=== PATIENT | female | born 1995 | race Two or more races ===

== ENCOUNTER → 2016-08-22 | Outpatient (CLI) | payer MEDICAID ==
--- NOTE | 2016-08-22 17:02 | RADIOLOGY REPORT (SQ) ---
EXAM DESCRIPTION: U/S OB 14+ TA/1 GEST W/DOPPLER COMPLETED DATE/TIME: 08/22/2016 4:49 pm REASON FOR STUDY: Z34.82 ENCOUNTER FOR SUPRVSN OF NORMAL , SECOND TRI COMPARISON: None. TECHNIQUE: Static and Dynamic grayscale imaging performed of gravid uterus using transabdominal appr oach. Additional selected color Doppler and spectral images recorded. All stored on PACS. LIMITATIONS: None. FINDINGS: EGA: 25 weeks and 1 day ANNMARIE: 12/04/2016 EFW: 781 g +/-116 g PERCENTILE: 46th LVP: 3.9 cm PLACENTA: Anterior PRESENTATION: Vertex ANATOMY: HEART RATE: 133 beats per minute. FOUR CHAMBER HEART: Visualized. THREE VESSEL CORD: Yes. CORD INSERTION: Visualized. KIDNEYS AND BLADDER: Visualized. Appear normal. STOMACH: Visualized. Appears normal. SPINE: Limited evaluation due to position. BRAIN AND LATERAL VENTRICLES: Limited evaluation due to position. OTHER: No other significant finding. MATERNAL ADNEXA: Maternal ovaries not visualized. CERVICAL LENGTH: 3.0 cm Closed. OTHER: No other significant finding. IMPRESSION: LIVING INTRAUTERINE . ESTIMATED GESTATIONAL AGE 25 weeks 1 day NO VISUALIZED ANOMALIES. Trimester of : Second trimester - 13 weeks 1 day to 27 weeks 6 days. TECHNICAL DOCUMENTATION: JOB ID: [id number] [employer]- All Rights Reserved
== END ==
LOC: RAD 14:41
PROVIDERS: ATTEND Nurse Practitioner Women's Health
DX: Z34.02 Encounter for supervision of normal first pregnancy, second trimester (principal)
CPT/HCPCS: 76805; 93976

== ENCOUNTER 2016-12-01 09:28 | Inpatient (IN) | payer MEDICAID ==
[2016-12-01] MEDS ORDERED: RINGERS SOLUTION,LACTATED 1,000 ML IV PRN (10:10)
[2016-12-01] MEDS ORDERED: LIDOCAINE 1% INJ-PF (10 MG/ML) 30 ML SDV ONE (10:15)
[2016-12-01] MEDS ORDERED: MISOPROSTOL 0.2 MG TABLET ONE (10:15)
[2016-12-01] MEDS ORDERED: OXYTOCIN/NORMAL SALINE 20 UNIT/1,000 ML RTUINJ ONE (10:15)
[2016-12-01 10:17] LABS: ABSOLUTE EOSINOPHILS # (AUTO) 0.1 10^3/uL (0.0-0.6); ABSOLUTE LYMPHOCYTES (AUTO) 3.1 10^3/uL (0.5-4.7); ABSOLUTE MONOCYTES (AUTO) 0.8 10^3/uL (0.1-1.4); ABSOLUTE NEUT (AUTO) 4.4 10^3/uL (1.7-8.2); BASOPHILS % (AUTO) 0.5 % (0-2); EOSINOPHILS % (AUTO) 1.3 % (0-6); HEMOGLOBIN 11.7 g/dL (12.0-15.5); HGB HCT DIFFERENCE 1.1; LYMPHOCYTES % (AUTO) 36.3 % (13-45); MEAN CORPUSCULAR HEMOGLOBIN 29.3 pg (27.0-33.4); MEAN CORPUSCULAR HGB CONC 34.5 g/dL (32.0-36.0); MEAN CORPUSCULAR VOLUME 85 fl (80-97); MONOCYTES % (AUTO) 9.3 % (3-13); RED BLOOD COUNT 4.01 10^6/uL (3.72-5.28); RED CELL DISTRIBUTION WIDTH 14.5 % (11.5-14.0); SEGMENTED NEUTROPHILS % (AUTO) 52.6 % (42-78); WHITE BLOOD COUNT 8.4 10^3/uL (4.0-10.5)
[2016-12-01] MEDS ORDERED: NALBUPHINE HCL INJ 10 MG/1 ML AMPULE ONE (10:21)
[2016-12-01] MEDS ORDERED: PROMETHAZINE HCL INJ 25 MG/1 ML VIAL ONE (10:21)
[2016-12-01 10:26] LABS: APPEARANCE,URINE CLEAR; BILIRUBIN,URINE NEGATIVE (NEGATIVE); GLUCOSE, URINE NEGATIVE (NEGATIVE); KETONES,URINE NEGATIVE (NEGATIVE); LEUKOCYTE ESTERASE,URINE NEGATIVE (NEGATIVE); NITRITE,URINE NEGATIVE (NEGATIVE); PROTEIN,URINE NEGATIVE (NEGATIVE); URINE SPECIFIC GRAVITY 1.008; UROBILINOGEN,URINE NEGATIVE mg/dL (<2.0)
--- NOTE | 2016-12-01 10:39 | Non Stress Test Report ---
Non Stress Test Datetime Report Generated by CPN: 12/01/2016 10:39 DEMOGRAPHIC EGA NST: 39.4 INDICATION Indication for Study: Ordered by Provider MONITORING Monitor Explained: Monitor Explained; Test Explained; Patient Verbalized Understanding Time on Monitor: 12/01/2016 09:47 Time off Monitor: 12/01/2016 10:37 NST Duration: 50 NST INTERVENTIONS NST Interventions: None Physician Notified NST: Dr Reyna BABY A: [id number] BABY A Movement : Present Movement : Present Contraction Frequency : 2-5 FHR Baseline : 135 Accelerations : 15X15 Accelerations : 15X15 Decelerations : None Decelerations : None Variability : Moderate 6-25bpm Variability : Moderate 6-25bpm NST Review: Meets Criteria for Reactive NST NST Review: Meets Criteria for Reactive NST NST Review and Verified By : Jorge Gill RN NST Results: Reactive NST Results: Reactive NST REPORT Report Trigger: Send Report
[2016-12-01 10:52] LABS: URINE BARBITURATES SCREEN NEGATIVE; URINE METHADONE SCREEN NEGATIVE; URINE OPIATES LOW NEGATIVE; URINE PHENCYCLIDINE SCREEN NEGATIVE
[2016-12-01] MEDS ORDERED: ONDANSETRON 4 MG TAB.RAPDIS ONE (11:05)
[2016-12-01] MEDS ORDERED: MISOPROSTOL 0.2 MG TABLET PR PRN (11:31)
[2016-12-01] MEDS ORDERED: LIDOCAINE 1% INJ-PF (10 MG/ML) 30 ML SDV INJ PRN (11:31)
[2016-12-01] MEDS ORDERED: PHENYLEPHRINE HCL INJ/PF 10 MG/1 ML SDV ONE (16:45)
[2016-12-01] MEDS ORDERED: BUPIVACAINE HCL 0.25 % INJ/PF (2.5 MG/1 ML) 30 ML VIAL ONE (16:45)
[2016-12-01] MEDS ORDERED: FENTANYL/BUPIVACAINE/NS/PF 200 MCG/100 ML RTUINJ EPI ONE (16:45)
[2016-12-01] MEDS ORDERED: FENTANYL CITRATE INJ/PF 100 MCG/2 ML AMPUL ONE (16:45)
[2016-12-01] MEDS ORDERED: EPHEDRINE SULFATE INJ 50 MG/1 ML AMPULE ONE (16:45)
[2016-12-01] MEDS ORDERED: EPHEDRINE SULFATE INJ 50 MG/1 ML AMPULE IV ONE (17:24)
[2016-12-01] MEDS ORDERED: BENZOIN/ALOE VERA/STORAX/TOLU TINCTURE 60 ML TP PRN (17:24)
[2016-12-01] MEDS ORDERED: FENTANYL CITRATE INJ/PF 100 MCG/2 ML AMPUL EPI ONE (17:24)
[2016-12-01] MEDS ORDERED: FENTANYL/BUPIVACAINE/NS/PF 200 MCG/100 ML RTUINJ EPI PRN (17:24)
[2016-12-01] MEDS ORDERED: BUPIVACAINE HCL 0.25 % INJ/PF (2.5 MG/1 ML) 30 ML VIAL INFIL ONE (17:24)
[2016-12-01] MEDS: OXYTOCIN/NORMAL SALINE 20 UNIT/1,000 ML RTUINJ IV PRN ×2 (17:33→18:01)
[2016-12-01] MEDS ORDERED: OXYTOCIN/NORMAL SALINE 20 UNIT/1,000 ML RTUINJ IV PRN ×2 (17:47→19:28)
[2016-12-01] MEDS ORDERED: METHYLERGONOVINE MALEATE INJ/PF 0.2 MG/1 ML AMPULE ONE (18:59)
[2016-12-01] MEDS ORDERED: ACETAMINOPHEN WITH CODEINE #3 TABLET PO PRN ×2 (19:28)
[2016-12-01] MEDS ORDERED: DIBUCAINE 1% OINTMENT 28 GM TP PRN (19:28)
[2016-12-01] MEDS ORDERED: MEASLES,MUMPS&RUBELLA VACC/PF 0.5 ML VIAL SUBCUT PRN (19:28)
[2016-12-01] MEDS ORDERED: DIPH/PERTUSS(ACELL)/TETANUS VAC/PF 0.5 ML SYR (>=10YO) IM PRN (19:28)
[2016-12-01] MEDS ORDERED: ZOLPIDEM TARTRATE 5 MG TABLET PO PRN (19:28)
[2016-12-01] MEDS ORDERED: BENZOCAINE/MENTHOL AEROSOL SPRAY 56 ML TOP PRN (19:28)
[2016-12-01] MEDS ORDERED: AMMONIA INHALANTS 10 AMPUL/BOX IH ONE (20:38)
[2016-12-01] MEDS ORDERED: IBUPROFEN 800 MG TABLET ONE (20:55)
[2016-12-01] MEDS: IBUPROFEN 800 MG TABLET PO SCH (20:58)
--- NOTE | 2016-12-01 21:50 | Admission Physical ---
Datetime Report Generated by CPN: 12/01/2016 21:50 CURRENT ADMISSION Chief Complaint: Uterine Contractions; Suspected Ruptured Membranes Indication for Induction: Not Applicable Indication for Induction: Term, Intrauterine ; Active Labor; Ruptured Membranes Admit Plan: Admit to Unit; Initiate Labor Protocol ALLERGIES Medication Allergies: Yes Medication Allergies: No Known Allergies (12/01/2016) Latex: No Latex Allergies OBSTETRICAL HISTORY EDC: 12/04/2016 00:00 : 3 Para: 0 Term: 0 : 0 SAB: 2 IAB: 0 Ectopic: 0 Livin Cesareans: 0 VBACs: 0 Multiple Births: 0 Gestational Diabetes: No Rh Sensitization: No Incompetent Cervix: No RADHA: No Infertility: No ART Treatment: No Uterine Anomaly: No IUGR: No Hx Previous C/S: No Macrosomia: No Hx Loss/Stillborn: No PIH: No Hx : No Placenta Previa/Abruption: No Depression/PP Depression: No PTL/PROM: No Post Hemorrhage: No Current Procedures: Ultrasound Obstetrical History Comments: G1 SAB @ 6wks G2 SAB @ 8wks G3 current SEE RECORDS Alcohol: No Marijuana : No Cocaine: No Other Illicit Drugs: No Cigarettes: Never Smoker. [id number] MEDICAL HISTORY Diabetes: No Blood Transfusion: No Pulmonary Disease (Asthma, TB): No Breast Disease: No Hypertension: No Campaign Analyst Surgery: No Heart Disease: No Hosp/Surgery: No Autoimmune Disorder: No Anesthetic Complications: No Kidney Disease: No Abnormal Pap Smear: No Neuro/Epilepsy: No Psychiatric Disorders: No Other Medical Diseases: No Hepatitis/Liver Disease: No Significant Family History: No Varicosities/Phlebitis: No Trauma/Violence : No Thyroid Dysfunction: No INFECTIOUS HISTORY Gonorrhea: No Genital Herpes: No Chlamydia: No Tuberculosis: No Syphilis: No Hepatitis: No HIV/AIDS Exposure: No Rash or Viral Illness: No HPV: No PHYSICAL EXAM General: Normal HEENT: Normal Neurologic: Normal Thyroid: Deferred Heart: Normal Lungs: Normal Breast: Deferred Back: Normal Abdomen: Normal Genitourinary Exam: Normal Extremities: Normal DTRs: Normal Pelvic Type: Adequate Vital Signs: Reviewed; Within Normal Limits VAGINAL EXAM Dilatation: 7 Effacement: 90 Station: -1 MEMBRANES Membranes: Ruptured Amniotic Fluid Color: Meconium, Light FETUS A EGA: 39.4 Monitoring: External US FHR- Baseline: 140 Variability: Moderate 6-25bpm Accelerations: 15X15 Decelerations: None FHR Category: Category I Presentation: Vertex PLANS FOR LABOR AND DELIVERY Feeding Preference: Breast Benefit of Breast Feed Discussed: Yes INFORMED CONSENT Signature: with User ID: [email or web address]
[2016-12-02] MEDS: IBUPROFEN 800 MG TABLET PO SCH ×3 (05:58→21:30)
[2016-12-02 07:51] LABS: HEMATOCRIT 25.9 % (36.0-47.0); HGB HCT DIFFERENCE 0.5; MEAN CORPUSCULAR HGB CONC 34.1 g/dL (32.0-36.0); MEAN CORPUSCULAR VOLUME 85 fl (80-97); RED BLOOD COUNT 3.03 10^6/uL (3.72-5.28); RED CELL DISTRIBUTION WIDTH 14.3 % (11.5-14.0)
[2016-12-02 07:54] LABS: HEMOGLOBIN 8.8 g/dL (12.0-15.5)
[2016-12-02] MEDS: DOCUSATE SODIUM 100 MG CAPSULE PO SCH ×2 (09:32→17:59)
[2016-12-02] MEDS: FERROUS SULFATE 325 MG TABLET PO SCH ×2 (09:32→17:59)
[2016-12-02] MEDS: PRENATAL VITAMIN W-O CA NO5/FE FUMARATE/FA CAPSULE PO SCH (09:33)
[2016-12-02] MEDS: SENNOSIDES/DOCUSATE 8.6-50 MG 1 EACH TABLET PO SCH (09:33)
--- NOTE | 2016-12-02 09:35 | PDOC PROGRESS REPORT ---
Subjective-OB Subjective: Post Delivery Day: 21 year old. Denies any needs at this time Breast and bottle feeding. Doing well, voiding, ambulating. No heavy bleeding. Physical Exam (OB) Vital Signs: Temp Pulse Resp BP Pulse Ox 98.3 F 85 16 110/53 L 100 12/02/16 08:25 12/02/16 08:25 12/02/16 08:25 12/02/16 08:25 12/02/16 08:25 Intake & Output 12/01/16 12/02/16 12/03/16 06:59 06:59 06:59 Weight 74.4 kg - Lochia Lochia Amount: Small 10-25 ml Lochia Color: Rubra/Red - Abdomen Description: Soft, Round Hernia Present: No Fundal Description: Firm, Midline Fundal Height: u/u - u/2 Objective-Diagnostic Laboratory: 12/02/16 07:37 12/01/16 12/01/16 12/01/16 09:42 10:05 10:05 WBC 8.4 RBC 4.01 Hgb 11.7 L Hct 34.0 L MCV 85 MCH 29.3 MCHC 34.5 RDW 14.5 H Plt Count 237 Seg Neutrophils % 52.6 Lymphocytes % 36.3 Monocytes % 9.3 Eosinophils % 1.3 Basophils % 0.5 Absolute Neutrophils 4.4 Absolute Lymphocytes 3.1 Absolute Monocytes 0.8 Absolute Eosinophils 0.1 Absolute Basophils 0.0 Urine Color YELLOW Urine Appearance CLEAR Urine pH 6.0 Ur Specific [place] 1.008 Urine Protein NEGATIVE Urine Glucose (UA) NEGATIVE Urine Ketones NEGATIVE Urine Blood SMALL H Urine Nitrite NEGATIVE Ur Leukocyte Esterase NEGATIVE Blood Type O POSITIVE Antibody Screen NEGATIVE 12/02/16 07:37 WBC 19.0 H D RBC 3.03 L Hgb 8.8 L D Hct 25.9 L MCV 85 MCH 29.0 MCHC 34.1 RDW 14.3 H Plt Count 243 Seg Neutrophils % Lymphocytes % Monocytes % Eosinophils % Basophils % Absolute Neutrophils Absolute Lymphocytes Absolute Monocytes Absolute Eosinophils Absolute Basophils Urine Color Urine Appearance Urine pH Ur Specific [place] Urine Protein Urine Glucose (UA) Urine Ketones Urine Blood Urine Nitrite Ur Leukocyte Esterase Blood Type Antibody Screen Assessment and Plan(PN) - Assessment and Plan (1) hemorrhage Qualifiers: hemorrhage type: unspecified Qualified Code(s): O72.1 - Other immediate hemorrhage Is this a current diagnosis for this admission?: Yes (2) Vaginal delivery Is this a current diagnosis for this admission?: Yes - Time Spent with Patient Time with patient: Less than 15 minutes Medications reviewed and adjusted accordingly: Yes - Disposition Anticipated Discharge: Home Within: within 48 hours
[2016-12-02 10:28] LABS: HEMATOCRIT 22.7 % (36.0-47.0); HGB HCT DIFFERENCE 0.4; MEAN CORPUSCULAR HEMOGLOBIN 28.9 pg (27.0-33.4); MEAN CORPUSCULAR HGB CONC 33.8 g/dL (32.0-36.0); MEAN CORPUSCULAR VOLUME 85 fl (80-97); RED BLOOD COUNT 2.66 10^6/uL (3.72-5.28); RED CELL DISTRIBUTION WIDTH 14.3 % (11.5-14.0); WHITE BLOOD COUNT 15.1 10^3/uL (4.0-10.5)
[2016-12-02 10:49] LABS: HEMOGLOBIN 7.7 g/dL (12.0-15.5)
[2016-12-03] MEDS: IBUPROFEN 800 MG TABLET PO SCH ×2 (06:58→13:38)
[2016-12-03 08:52] VITALS: BP 115/66
--- NOTE | 2016-12-03 09:13 | PDOC DISCHARGE SUMMARY ---
Final Diagnosis Discharge Date: 12/03/16 - Final Diagnosis (1) hemorrhage Is this a current diagnosis for this admission?: Yes (2) Vaginal delivery Is this a current diagnosis for this admission?: Yes Discharge Data - Discharge Medication Home Medications: Docusate Sodium [Colace 100 mg Capsule] 100 mg PO BID #60 capsule 12/03/16 Ferrous Sulfate [Feosol 325 mg Tablet] 325 mg PO BID #60 tablet 12/03/16 Ibuprofen [Motrin 800 mg Tablet] 800 mg PO Q8 #60 tablet 12/03/16 Gestational Age: 39.4 Reason(s) for Admission: Onset of Labor Procedures: NST Intrapartum Procedure(s): Spontaneous Vaginal Delivery Complication(s): Laceration-Perineal, Laceration-Periurethral Laceration-Degree: 2nd - [place] Data Baby 1 Male at 1 minute: 8 at 5 minutes: 9 Home with Mother: Yes Complications: No - Diagnosis Test Laboratory: Temp Pulse Resp BP Pulse Ox 98.2 F 83 17 115/66 100 12/03/16 08:16 12/03/16 08:16 12/03/16 08:16 12/03/16 08:16 12/03/16 08:16 12/01/16 12/01/16 12/02/16 09:42 10:05 07:37 RBC 4.01 3.03 L Hgb 11.7 L 8.8 L D Hct 34.0 L 25.9 L Urine Opiates Screen NEGATIVE 12/02/16 09:50 RBC 2.66 L Hgb 7.7 L Hct 22.7 L Urine Opiates Screen - Discharge information/Instructions Discharge Activity: Activity As Tolerated, Pelvic Rest, No tub bath Discharge Diet: Regular Disposition: HOME, SELF-CARE Follow up with: [facility] in: 4, Weeks
[2016-12-03] MEDS: SENNOSIDES/DOCUSATE 8.6-50 MG 1 EACH TABLET PO SCH (10:33)
[2016-12-03] MEDS: FERROUS SULFATE 325 MG TABLET PO SCH (10:33)
[2016-12-03] MEDS: PRENATAL VITAMIN W-O CA NO5/FE FUMARATE/FA CAPSULE PO SCH (10:33)
[2016-12-03] MEDS: DOCUSATE SODIUM 100 MG CAPSULE PO SCH (10:33)
--- NOTE | 2016-12-04 17:14 | Delivery Summary ---
Del Sum A-C Datetime Report Generated by CPN: 12/04/2016 17:14 DELIVERY PERSONNEL DELIVERY PERSONNEL: [id number] Delivery Doctor:: Sarahi Montanez CNM Nurse Inward Toll Operator Certified:: Sarahi Montanez CNM Labor and Delivery Nurse:: Annamaria Lucas RN Nursery Nurse:: OLIVER Samaniego Tech/SPECIAL ASSEMBLIES SUPERVISOR: Cate Townsend, LEAD C DEVELOPER MATERNAL INFORMATION Delivery Anesthesia: Epidural Medications After Delivery: Pitocin Bolus-Please Comment; Methergine 0.2mg IM Meds After Delivery Comment: cytotec 1000mcg Estimated Blood Loss (ml): 500 Maternal Complications: Prolonged Second Stage > 2 Hrs Provider Comments: of viable male infant, head delivered, loose nuchal reduced, shoulders and body delivered without difficulty, with spontaneous cry and respirations, to maternal abodmen, cord clamped X2, and cut free after 2 min delay, heavier bleeding, boggy lower uterine segment, 1000 mcg rectal cytotec given, methergin 0.2 mg IM given, bladder emptied with red rubber cath, fundus firm with continued massage. EBL: 500 ml, repairs as above, mother and in stable condition, routine pp care. LABOR SUMMARY EDC: 12/04/2016 00:00 No. Babies in Womb: 1 Attempted: No Labor Anesthesia: Epidural LABOR INFORMATION Reason for Induction: Not Applicable Onset of Labor: 12/01/2016 05:00 Complete Dilatation: 12/01/2016 14:58 Oxytocin: Augmentation Group B Beta Strep: negative Antibiotics # of Doses: 0 Steroids Given: None Reason Steroids Not Administered: Not Applicable MEMBRANES Membranes Rupture Method: Spontaneous Rupture of Membranes: 12/01/2016 05:00 Length of Rupture (hr): 13.85 Amniotic Fluid Color: Light Meconium Amniotic Fluid Amount: Small Amniotic Fluid Odor: Normal STAGES OF LABOR Stage 1 hr: 9 Stage 1 min: 58 Stage 2 hr: 3 Stage 2 min: 53 Stage 3 hr: -2 Stage 3 min: -57 Total Time in Labor hr: 10 Total Time in Labor min: 54 VAGINAL DELIVERY Episiotomy: None Laceration #1: Perineal Laceration Extension #1: Second Degree Laceration #2: Periurethral Laceration Extension #2: First Degree Laceration Repair: Yes Laceration Repair Note: bilateral periuretherals repaired with 3-0 chromic, 2nd degree perineal laceration repaired with 2-0 chromic in usual fashion, using epidural anesthesia Sponge Count Correct: Yes Sharps Count Correct: Yes CSECTION DELIVERY Primary Indication: N/A Secondary Indication: N/A CSection Urgency: N/A CSection Incidence: N/A Labor: N/A Elective: N/A CSection Incision: N/A BABY A INFORMATION Delivery Date/Time: 12/01/2016 18:51 Method of Delivery: Vaginal Born in Route : No : N/A Forceps: N/A Vacuum Extraction: N/A Shoulder Dystocia : No PRESENTATION/POSITION BABY A Presentation: Cephalic Cephalic Presentation: Vertex Vertex Position: Left Occipital Anterior Breech Presentation: N/A PLACENTA INFORMATION BABY A Placenta Delivery Time : 12/01/2016 15:54 Placenta Method of Delivery: Spontaneous Placenta Status: Delivered SCORES BABY A Heart Rate 1 min: >100 bpm Resp Effort 1 min: Good Cry Reflex Irritability 1 min: Cough or Sneeze or Pulls Away Muscle Tone 1 min: Active Motion Color 1 min: Body Ronceverte, Extremities Blue Resuscitation Effort 1 min: Tactile Stimulation SCORE 1 MIN: 9 Heart Rate 5 min: >100 bpm Resp Effort 5 min: Good Cry Reflex Irritability 5 min: Cough or Sneeze or Pulls Away Muscle Tone 5 min: Active Motion Color 5 min: Body Ronceverte, Extremities Blue Resuscitation Effort 5 min: N/A SCORE 5 MIN: 9 INFORMATION BABY A Gestational Age at Delivery: 39.4 Gestational Status: Full Term- 39- 40.6 Weeks Infant Outcome : Liveborn Condition : Stable Sex: Male IDENTIFICATION BABY A Verification Date/Time: 12/01/2016 19:04 ID Band Number: [id number] Mother's Name Verified: Yes RN Verifying : H. Elroy, Rn and B. Baidy, RN WEIGHT/LENGTH BABY A Birthweight (gm): 3425 Infant Weight (lb): 7 Infant Weight (oz): 9 Length (in): 21.00 Infant Length (cm): 53.34 CORD INFORMATION BABY A No. Cord Vessels: 3 Nuchal Cord : Around Neck x1, Loose Cord Blood Taken: Yes-For Eval (Mom's Blood Type - or O+) Infant Suction: Mouth; Nose ASSESSMENT BABY A Skin to Skin: Yes Skin to Skin Time (min): 50 BABY B INFORMATION : N/A SIGNATURES Assignment: Krishna Reyna DO Signature: with User ID: [email or web address]
== END 2016-12-03 14:24 | disposition home or self-care (01) | DRG 774 ==
LOC: LC 09:28 → LR 10:01 → 2S 21:40
PROVIDERS: ADMIT Obstetrics & Gynecology; ATTEND Obstetrics & Gynecology
PROC: 10E0XZZ Delivery of Products of Conception, External Approach (ICD-10-PCS; principal; 2016-12-01)
PROC: 0KQM0ZZ Repair Perineum Muscle, Open Approach (ICD-10-PCS; 2016-12-01)
PROC: 0UQMXZZ Repair Vulva, External Approach (ICD-10-PCS; 2016-12-01)
PROC: 4A1HXCZ Monitoring of Products of Conception, Cardiac Rate, External Approach (ICD-10-PCS; 2016-12-01)
DX: O72.1 Other immediate postpartum hemorrhage (principal); O71.82 Other specified trauma to perineum and vulva; O70.1 Second degree perineal laceration during delivery; O77.0 Labor and delivery complicated by meconium in amniotic fluid; O63.1 Prolonged second stage (of labor); O69.81X0 Labor and delivery complicated by cord around neck, without compression, not applicable or unspecified; Z3A.39 39 weeks gestation of pregnancy; Z37.0 Single live birth
CPT/HCPCS: 36415; 80307; 81005; 85025; 85027; 86592; 86850; 86900; 86901; J2210; J2300; J2370; J2550; J2590; J3010; J3490; S0119

== ENCOUNTER 2016-12-05 18:56 | Emergency (ER) | payer MEDICAID ==
[2016-12-05 19:38] VITALS: BP 133/75
--- NOTE | 2016-12-05 20:29 | ER Document Report ---
ED Medical Screen (RME) - General TRAVEL OUTSIDE OF THE [place] IN LAST 30 DAYS: No - HPI Patient complains to provider of: Torn stitch Onset: This afternoon - 1500 Associated Symptoms: Other - see notes above - Related Data Smoking: Non-smoker Frequency of alcohol use: None Drug Abuse: None - General Chief Complaint: Vaginal Bleeding Stated Complaint: PAIN AT EPISIOTOMY SITE Time Seen by Provider: 12/05/16 20:16 Notes: 21-year-old female presents to the ED complaining of tearing a vaginal stitch secondary to delivering on 12/01/2016 at approximately 1500 today. Patient explains that she has some vaginal spotting which is less than her usual period , but more earlier today. Patient developed a headache at 1700. (RAPHAEL JOHNSON) - Related Data Allergies/Adverse Reactions: No Known Allergies Allergy (Unverified 12/01/16 10:07) Past Medical History - General Information source: Patient - Social History Chew tobacco use (# tins/day): No Frequency of alcohol use: None Drug Abuse: None Family history: Reviewed & Not Pertinent Renal/ Medical History: Denies: Hx Peritoneal Dialysis Surgical Hx: Negative - Immunizations Hx Diphtheria, Pertussis, Tetanus Vaccination: No History of Influenza Vaccine for 11/2016 - 04/2017 Season: No Review of Systems - Review of Systems Constitutional: No symptoms reported EENT: No symptoms reported Cardiovascular: No symptoms reported Respiratory: No symptoms reported Gastrointestinal: No symptoms reported Genitourinary: No symptoms reported Female Genitourinary: See HPI, Vaginal bleeding Musculoskeletal: No symptoms reported Skin: No symptoms reported Hematologic/Lymphatic: No symptoms reported Neurological/Psychological: See HPI, Headaches -: Yes All other systems reviewed and negative Physical Exam - General General appearance: Alert In distress: None - HEENT Head: Normocephalic, Atraumatic Eyes: Normal Extraocular movements intact: Yes Pupils: PERRL - Respiratory Respiratory status: No respiratory distress - Vital signs Vitals: Temp Pulse Resp BP Pulse Ox 98.3 F 95 18 133/75 H 99 12/05/16 19:35 12/05/16 19:35 12/05/16 19:35 12/05/16 19:35 12/05/16 19:35 Course - Re-evaluation Re-evalutation: 12/05/16 20:29 Discussed with patient that she will need an external vaginal exam, patient wants to know if she can have an appointment to return tomorrow, discussed with patient that we do not have appointments in the emergency department. Encouraged the patient to wait and hopefully be seen in pod 5. Patient agreeable with plan at this time. 12/05/16 21:41 (JOSE ANTONIO KOLB) - Vital Signs Vital signs: Temp Pulse Resp BP Pulse Ox 98.3 F 95 18 133/75 H 99 12/05/16 19:35 12/05/16 19:35 12/05/16 19:35 12/05/16 19:35 12/05/16 19:35 Scribe Documentation - Scribe Written by Marci:: Marci Bueno, 12/05/[id number] acting as scribe for :: Nirmal
== END 2016-12-05 22:05 | disposition left against medical advice (07) ==
LOC: ER 18:56
DX: Z53.21 Procedure and treatment not carried out due to patient leaving prior to being seen by health care provider (principal)
CPT/HCPCS: 99281